=== PATIENT | female | born 1970 ===

== ENCOUNTER → 2018-04-22 | Day surgery (SDC) | payer BC ==
[~2018-04-22] MED LIST: Lactated Ringer's 500 ML IV ONE; Midazolam 2 MG/2 ML VIAL ONE; Propofol 10 mg/ml Inj (20 ML) ONE
[2018-04-22 09:44] VITALS: BMI 40.9
[2018-04-22 10:26] VITALS: TEMP 97
[2018-04-22 12:51] VITALS: O2SAT 100
[2018-04-22 13:06] VITALS: BP 120/80; PULSE 64; RESP 16
== END | disposition home or self-care (01) ==
LOC: H.ENDO 08:50
PROVIDERS: ATTEND Internal Medicine Gastroenterology
DX: K52.9 Noninfective gastroenteritis and colitis, unspecified (principal); K64.8 Other hemorrhoids; K63.89 Other specified diseases of intestine; K29.70 Gastritis, unspecified, without bleeding
CPT/HCPCS: 43239; 45380; 82948; 88305; J2001; J2250; J2704; J7120